=== PATIENT | female | born 1980 | race Caucasian/White ===

== ENCOUNTER → 2018-11-06 10:32 | Outpatient (CLI) | payer OTHER ==
[2018-11-06 11:15] LABS: BASOPHILS 0.3 % (0-2); EOSINOPHILS 1.6 % (0-7); HEMOGLOBIN 13.6 g/dL (12-16); IMMATURE GRANULOCYTES 0.2 % (0-5); LYMPHOCYTES 25.6 % (15-50); MCH 35.5 pg (26.0-34.0); MCHC 34.9 g/dL (31.0-37.0); MCV 101.8 fL (80.0-100.0); MEAN PLATELET VOLUME 9.3 fL (7.4-10.4); MONOCYTES 5.7 % (2-11); NEUTROPHILS 66.6 % (40-80); PLATELET COUNT 260 10x3/uL (130-400); RBC 3.83 10x6/uL (4.00-5.40); WBC 6.1 10x3/uL (4.8-10.8)
[2018-11-06 11:16] LABS: ALBUMIN 3.8 g/dL (3.4-5.0); ALKALINE PHOSPHATASE 52 U/L (46-116); ALT (SGPT) 20 U/L (10-68); BILIRUBIN - TOTAL 0.22 mg/dL (0.2-1.3); CALC OSMOLALITY 275 mosm/kg (275-300); CALCIUM 9.1 mg/dL (8.5-10.1); CARBON DIOXIDE 29.7 mmol/L (21.0-32.0); CHLORIDE - SERUM 101 mmol/L (98-107); CREATININE - SERUM 0.8 mg/dL (0.6-1.3); GLUCOSE 90 mg/dL (74-106); POTASSIUM - SERUM 4.4 mmol/L (3.5-5.1); PROTEIN - SERUM 7.4 g/dL (6.4-8.2); SODIUM 139 mmol/L (136-145); UREA NITROGEN 8 mg/dL (7-18); eGFR NON AFRICAN AMERICAN 84 mL/min (90-120)
[2018-11-06 12:31] LABS: ERYTHROCYTE SEDIMENTATION RATE 19 mm/hr (0-20)
== END | disposition home or self-care (01) ==
LOC: D.LAB 10:32
PROVIDERS: ATTEND Internal Medicine Gastroenterology
DX: K50.90 Crohn's disease, unspecified, without complications (principal); K92.1 Melena; R19.7 Diarrhea, unspecified; R11.2 Nausea with vomiting, unspecified; R10.32 Left lower quadrant pain

== ENCOUNTER → 2019-02-18 08:17 | Outpatient (CLI) | payer OTHER ==
[~2019-02-18 08:17] MED LIST: HYDROCODON-ACE1 EA10 PO; LEVOFLOXACIN500 MG PO; MUCINEX600 MG PO; TAMIFLU30 MG PO; TESSALON PERLE100 MG PO
[2019-03-27 23:09] VITALS: BMI 27.3
== END | disposition home or self-care (01) ==
LOC: D.US 08:17
PROVIDERS: ATTEND Internal Medicine Gastroenterology
DX: R11.2 Nausea with vomiting, unspecified (principal); R10.9 Unspecified abdominal pain

== ENCOUNTER → 2019-03-07 12:05 | Outpatient (CLI) | payer OTHER ==
[2019-03-27 23:09] VITALS: BMI 27.3
== END | disposition home or self-care (01) ==
LOC: D.NM 12:05
PROVIDERS: ATTEND Internal Medicine Gastroenterology
DX: R10.9 Unspecified abdominal pain (principal); R11.2 Nausea with vomiting, unspecified

== ENCOUNTER 2019-03-27 16:50 | Inpatient (IN) | payer OTHER ==
[~2019-03-27] VITALS: Ht 170.2 cm; Wt 79.1 kg
[2019-03-27] MEDS ORDERED: TAMIFLU30 MG PO (17:24)
[2019-03-27] MEDS ORDERED: MUCINEX600 MG PO (17:25)
[2019-03-27] MEDS ORDERED: HYDROCODON-ACE1 EA10 PO (17:26)
[2019-03-27 18:32] LABS: CALC OSMOLALITY 275 mosm/kg (275-300); CALCIUM 8.6 mg/dL (8.5-10.1); CARBON DIOXIDE 31.3 mmol/L (21.0-32.0); CHLORIDE - SERUM 100 mmol/L (98-107); CREATININE - SERUM 0.7 mg/dL (0.6-1.3); GLUCOSE 103 mg/dL (74-106); POTASSIUM - SERUM 4.2 mmol/L (3.5-5.1); SODIUM 139 mmol/L (136-145); UREA NITROGEN 8 mg/dL (7-18); eGFR NON AFRICAN AMERICAN > 90 mL/min (90-120)
[2019-03-27 18:38] LABS: ALBUMIN 3.5 g/dL (3.4-5.0); ALKALINE PHOSPHATASE 91 U/L (46-116); ALT (SGPT) 46 U/L (10-68); CREATINE KINASE 23 UL (21-215); PROTEIN - SERUM 7.7 g/dL (6.4-8.2)
[2019-03-27 18:42] LABS: BASOPHILS 0.3 % (0-2); EOSINOPHILS 0.8 % (0-7); HEMATOCRIT 40.8 % (36.0-48.0); HEMOGLOBIN 13.8 g/dL (12-16); IMMATURE GRANULOCYTES 0.3 % (0-5); LYMPHOCYTES 19.4 % (15-50); MCH 35.4 pg (26.0-34.0); MCHC 33.8 g/dL (31.0-37.0); MCV 104.6 fL (80.0-100.0); MEAN PLATELET VOLUME 9.4 fL (7.4-10.4); MONOCYTES 7.2 % (2-11); PLATELET COUNT 248 10x3/uL (130-400); RDW 11.7 % (11.5-14.5); WBC 9.2 10x3/uL (4.8-10.8)
[2019-03-27 19:28] LABS: INR 1.27 (0.85-1.17); PROTIME 15.3 SECONDS (11.6-15.0)
[2019-03-27 19:46] LABS: APPEARANCE CLOUDY (CLEAR); BILIRUBIN NEGATIVE (NEGATIVE); COLOR YELLOW (YELLOW); GLUCOSE NEGATIVE (NEGATIVE); KETONE NEGATIVE (NEGATIVE); NITRITE NEGATIVE (NEGATIVE); PROTEIN TRACE mg/dL (NEGATIVE)
[2019-03-27 19:50] LABS: TROPONIN-I < 0.017 ng/mL (0.000-0.060)
[2019-03-27 19:50] LABS: RED CELLS - URINE NONE SEEN /hpf (0-5); WHITE CELLS - URINE 0-5 /hpf (NEGATIVE)
[2019-03-27 19:51] LABS: AMORPHOUS SEDIMENT <1+ /lpf (NONE SEEN); BACTERIA MODERATE /hpf (NEGATIVE)
--- NOTE | 2019-03-27 22:01 | NUR ---
AZITHROMYCIN 500MG COMPLETE
[2019-03-27 23:09] VITALS: BP 100/62; Ht 170.2 cm; Wt 79.1 kg
[2019-03-28 00:24] VITALS: BP 134/67
[2019-03-28 04:45] VITALS: BP 121/70
[2019-03-28 05:48] LABS: BASOPHILS 0.2 % (0-2); EOSINOPHILS 0 % (0-7); HEMATOCRIT 36.7 % (36.0-48.0); HEMOGLOBIN 12.3 g/dL (12-16); IMMATURE GRANULOCYTES 0.5 % (0-5); MCH 35.4 pg (26.0-34.0); MCHC 33.5 g/dL (31.0-37.0); MCV 105.8 fL (80.0-100.0); MEAN PLATELET VOLUME 9.5 fL (7.4-10.4); MONOCYTES 1.4 % (2-11); NEUTROPHILS 88.9 % (40-80); PLATELET COUNT 232 10x3/uL (130-400); RBC 3.47 10x6/uL (4.00-5.40); RDW 11.8 % (11.5-14.5)
[2019-03-28 06:03] LABS: WBC 6.3 10x3/uL (4.8-10.8)
[2019-03-28 06:44] LABS: ANION GAP 14.3 mmol/L (8-16); BILIRUBIN - TOTAL 0.26 mg/dL (0.2-1.3); CALCIUM 8.8 mg/dL (8.5-10.1); CARBON DIOXIDE 24.3 mmol/L (21.0-32.0); MAGNESIUM - SERUM 2.1 mg/dL (1.8-2.4); PHOSPHOROUS 2.6 mg/dL (2.5-4.9); POTASSIUM - SERUM 3.6 mmol/L (3.5-5.1); PROTEIN - SERUM 7.2 g/dL (6.4-8.2)
[2019-03-28 06:48] LABS: CREATININE - SERUM 0.9 mg/dL (0.6-1.3)
[2019-03-28 07:50] VITALS: BP 116/65
--- NOTE | 2019-03-28 08:10 | NUR ---
REPORT RECIEVED. WILL CONTINUE WITH POC. PT CURRENTLY LYING SUPINE. CALL LIGHT W/I REACH. PT IS AAO AND UP AD SHARDA. RR EVEN AND UNLABORED ON RA. L.HAND PIV IS SALINE LOCKED. NO S/S OF DISTRESS NOTED. PT DENIES ANY NEEDS. WILL CTM.
[2019-03-28 10:47] VITALS: BP 129/81
--- NOTE | 2019-03-28 11:54 | NUR ---
I have reviewed this patient and I concur with the Shift Assessment completed by the Licensed Practical Nurse today this shift.
--- NOTE | 2019-03-28 14:52 | NUR ---
NOTIFIED CONNIE WITH INFECTION CONTROL TO NOTIFY HER OF THE NEGATIVE FLU RESULTS. RECEIVED ORDERS TO KEEP PT IN ISOLATION OVER THE WEEKEND. WILL CTM.
[2019-03-28 15:14] VITALS: BP 166/103
--- NOTE | 2019-03-28 19:10 | NUR ---
RECEIVED REPORT, WILL ASSUME CARE OF PT, DR. PEARL IN ROOM, WILL CONTINUE PLAN OF PT
[2019-03-28] MEDS ORDERED: MUCINEX600 MG PO (21:00)
[2019-03-28] MEDS ORDERED: TESSALON PERLE100 MG PO (21:00)
--- NOTE | 2019-03-28 21:32 | NUR ---
DISCHARGED HOME WITH FAMILY, TAKEN DOWN VIA WHEELCHAIR
[2019-03-28] MEDS ORDERED: LEVOFLOXACIN500 MG PO (22:24)
--- NOTE | 2019-03-31 09:04 | MORECARE ---
CASE MANAGEMENT DISCHARGE SUMMARY PATIENT: GABRIELA OROPEZA BLUE UNIT: [id number] ADM DATE: 03/27/19 AGE: 38 : 78 SEX: F ROOM/BED: D.2101 AUTHOR: RUEL DERAS PHYSICIAN: REFERRING PHYSICIAN: THERESE PEARL MD DATE OF SERVICE: 03/31/19 Discharge Plan Patient Name: GABRIELA OROPEZA Facility: [facility]:[place] : 1980 Planned Disposition: Home Anticipated Discharge Date: 03/28/19 Discharge Date: 03/28/2019 Expected LOS: 1 Initial Reviewer: [email or web address] Initial Review Date: 03/31/2019 Generated: 03/31/19 10:04 am Patient Name: GABRIELA OROPEZA Page [id number] at 0904 All edits/amendments must be made on the electronic document DICTATION DATE: 03/31/19903 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
--- NOTE | 2019-03-31 09:12 | MORECARE ---
CASE MANAGEMENT DISCHARGE SUMMARY PATIENT: GABRIELA OROPEZA BLUE UNIT: [id number] ADM DATE: 03/27/19 AGE: 38 : 78 SEX: F ROOM/BED: D.2101 AUTHOR: RUEL DERAS PHYSICIAN: REFERRING PHYSICIAN: THERESE PEARL MD DATE OF SERVICE: 03/31/19 Discharge Plan Patient Name: GABRIELA OROPEZA Facility: [facility]:[place] : 1980 Planned Disposition: Home Anticipated Discharge Date: 03/28/19 Discharge Date: 03/28/2019 Expected LOS: 1 Initial Reviewer: [email or web address] Initial Review Date: 03/31/2019 Generated: 03/31/19 10:11 am Patient Name: GABRIELA OROPEZA Page [phone] at 0912 All edits/amendments must be made on the electronic document DICTATION DATE: 03/31/19910 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
== END 2019-03-28 21:33 | disposition home or self-care (01) | DRG 152 ==
LOC: D.ER 16:50 → D.M2 20:10
PROVIDERS: Family Medicine; ADMIT Internal Medicine Nephrology; ATTEND Internal Medicine Nephrology
DX: J11.1 Influenza due to unidentified influenza virus with other respiratory manifestations (principal); J96.01 Acute respiratory failure with hypoxia; F17.213 Nicotine dependence, cigarettes, with withdrawal; N39.0 Urinary tract infection, site not specified; J44.1 Chronic obstructive pulmonary disease with (acute) exacerbation; D75.89 Other specified diseases of blood and blood-forming organs

== ENCOUNTER 2019-11-10 04:07 | Emergency (ER) | payer OTHER ==
[~2019-11-10] VITALS: Ht 170.2 cm; Wt 72.7 kg
[2019-11-10 04:15] VITALS: Ht 170.2 cm; Wt 72.7 kg
[2019-11-10] MEDS ORDERED: OMEPRAZOLE20 M1 PO (04:17)
[2019-11-10] MEDS ORDERED: ULTRAM50 MG PO (04:17)
--- NOTE | 2019-11-10 05:07 | NUR ---
PATIENT IS IN ER FOR ANKLE PAIN. SHE IS NOT SUICIDIAL AND HAS NOT BEEN FOR THREE YEARS. SHE IS VERY HAPPY AND LIVES FOR HER CHILDREN AND GRANDCHILDREN. 1800 NUMBER GIVEN FOR FUTURE REFERENCE.
[2019-11-10] MEDS ORDERED: HYDROCODON-ACE1 EAC7 PO (05:31)
[2019-11-10 06:11] VITALS: BP 108/77
== END 2019-11-10 06:11 | disposition home or self-care (01) ==
LOC: D.ER 04:07
DX: S90.02XA Contusion of left ankle, initial encounter (principal); S80.02XA Contusion of left knee, initial encounter; W19.XXXA Unspecified fall, initial encounter; Y93.9 Activity, unspecified; Y92.9 Unspecified place or not applicable; S93.402A Sprain of unspecified ligament of left ankle, initial encounter

== ENCOUNTER 2019-12-13 12:31 | Inpatient (IN) | payer OTHER ==
[2019-12-13] VITALS (7 sets, daily range): BP systolic 114–130; BP diastolic 62–84
[~2019-12-13] VITALS: Ht 170.2 cm; Wt 69.0 kg
[~2019-12-13 12:31] MED LIST changes: +HYDROCODON-ACE1 EAC7 PO; +OMEPRAZOLE20 M1 PO; +ULTRAM50 MG PO
[2019-12-13 13:26] LABS: BASOPHILS 0.3 % (0-2); EOSINOPHILS 1.9 % (0-7); HEMATOCRIT 39.5 % (36.0-48.0); HEMOGLOBIN 13.8 g/dL (12-16); IMMATURE GRANULOCYTES 0.3 % (0-5); LYMPHOCYTES 28.6 % (15-50); MCH 35.8 pg (26.0-34.0); MCHC 34.9 g/dL (31.0-37.0); MCV 102.6 fL (80.0-100.0); MONOCYTES 7.1 % (2-11); NEUTROPHILS 61.8 % (40-80); PLATELET COUNT 251 10x3/uL (130-400); RBC 3.85 10x6/uL (4.00-5.40); RDW 11.9 % (11.5-14.5); WBC 5.8 10x3/uL (4.8-10.8)
[2019-12-13 13:53] LABS: BILIRUBIN NEGATIVE (NEGATIVE); GLUCOSE NEGATIVE (NEGATIVE); KETONE NEGATIVE (NEGATIVE); NITRITE NEGATIVE (NEGATIVE); UROBILINOGEN NORMAL (NORMAL)
[2019-12-13 13:54] LABS: HCG URINE NEGATIVE (NEGATIVE)
[2019-12-13 14:01] LABS: CALC OSMOLALITY 271 mosm/kg (275-300); CALCIUM 8.7 mg/dL (8.5-10.1); CARBON DIOXIDE 26.2 mmol/L (21.0-32.0); CHLORIDE - SERUM 103 mmol/L (98-107); CREATININE - SERUM 0.9 mg/dL (0.6-1.3); GLUCOSE 106 mg/dL (74-106); POTASSIUM - SERUM 3.7 mmol/L (3.5-5.1); SODIUM 137 mmol/L (136-145); UREA NITROGEN 6 mg/dL (7-18); eGFR NON AFRICAN AMERICAN 73 mL/min (90-120)
--- NOTE | 2019-12-13 14:07 | NUR ---
PT TRANSPORTED TO CT AT THIS TIME VIA STRETCHER
[2019-12-13 14:09] LABS: ALBUMIN 3.8 g/dL (3.4-5.0); ALKALINE PHOSPHATASE 65 U/L (30-120); ALT (SGPT) 24 U/L (10-68); AMYLASE - SERUM 40 U/L (25-115); BILIRUBIN - TOTAL 0.39 mg/dL (0.2-1.3); LIPASE 117 U/L (73-393); PROTEIN - SERUM 7.5 g/dL (6.4-8.2); TROPONIN-I < 0.017 ng/mL (0.000-0.060)
--- NOTE | 2019-12-13 18:20 | NUR ---
CALLED ED AND RECIEVED REPORT FROM MATILDA.
--- NOTE | 2019-12-13 19:00 | NUR ---
1900. PT AWAKE ALERT ASKING TO GO TO BEDSIDE POTTY. PT AMBULATED WITHOUT DIFFICULTY. SMALL STEATORRHEA, WITH SCANT BLOOD NOTED. PT AMBULATED IN BED. ASKED ABOUT VISITING HOURS. STATES HER WILL BRING HER LIQUID SOUP FOR DINNER. OFFERED PT JELLO AND SPRITE. PT ATE WITHOUT DIFFUCULTY. NO C/O VOMMITING OR EMMISIS. 2100- BRINGS PT SOUP. NO OTHER NEEDS AT THIS TIME. BED LOW CALL LIGHT IN REACH. 2300 REASSESSMENT COMPELTED. PT RESTING WITH EYES CLOSED. NO NEEDS AT THIS TIME 0100 RESTING WITH EYES CLOSED. 0300 REASSESSMENT COMPLETED. NO NEEDS VERBALIZED 0500 PT RESTING WITH EYES CLOSED. NO NEEDS AT THIS TIME.
[2019-12-14] VITALS (10 sets, daily range): BP systolic 104–137; BP diastolic 65–86
[2019-12-14 05:32] LABS: BASOPHILS 0.6 % (0-2); EOSINOPHILS 3.3 % (0-7); HEMATOCRIT 34.3 % (36.0-48.0); IMMATURE GRANULOCYTES 0.3 % (0-5); LYMPHOCYTES 52.8 % (15-50); MEAN PLATELET VOLUME 9.3 fL (7.4-10.4); RBC 3.33 10x6/uL (4.00-5.40); RDW 11.7 % (11.5-14.5)
[2019-12-14 05:36] LABS: PLATELET COUNT 155 10x3/uL (130-400); WBC 3.6 10x3/uL (4.8-10.8)
[2019-12-14 05:55] LABS: ALBUMIN 3.2 g/dL (3.4-5.0); ALKALINE PHOSPHATASE 57 U/L (30-120); BILIRUBIN - TOTAL 0.64 mg/dL (0.2-1.3); CARBON DIOXIDE 27.4 mmol/L (21.0-32.0); CHLORIDE - SERUM 107 mmol/L (98-107); CREATININE - SERUM 0.7 mg/dL (0.6-1.3); GLUCOSE 96 mg/dL (74-106); POTASSIUM - SERUM 3.3 mmol/L (3.5-5.1); PROTEIN - SERUM 6.5 g/dL (6.4-8.2); SODIUM 141 mmol/L (136-145); eGFR NON AFRICAN AMERICAN > 90 mL/min (90-120)
[2019-12-14 06:02] LABS: ALT (SGPT) 13 U/L (10-68); CALC OSMOLALITY 277 mosm/kg (275-300); UREA NITROGEN 4 mg/dL (7-18)
--- NOTE | 2019-12-14 17:30 | NUR ---
ARRIVES TO UNIT PER W/C, FAMILY AT BEDSIDE, IV TO R HAND, PROTONIX GTT AT 10 AND NS AT KVO, PAIN 3 NOW, NO BM TODAY, WILL BE NPO AFTER MN FOR NM SCAN TOMORROW, CONT TO MONITOR
--- NOTE | 2019-12-14 17:34 | NUR ---
TRANSFERRED TO ROOM 2232 VIA WHEELCHAIR.
[2019-12-14 19:47] LABS: UDS - AMPHET NEGATIVE QUAL (NEGATIVE); UDS - BARB NEGATIVE QUAL (NEGATIVE); UDS - BENZO NEGATIVE QUAL (NEGATIVE); UDS - COCAINE POSITIVE QUAL (NEGATIVE); UDS - OPIATE POSITIVE QUAL (NEGATIVE); UDS - PCP NEGATIVE QUAL (NEGATIVE); UDS - THC NEGATIVE QUAL (NEGATIVE)
[2019-12-15] VITALS: BP 131/79
[2019-12-15 06:15] LABS: BASOPHILS 0.3 % (0-2); EOSINOPHILS 1.9 % (0-7); HEMATOCRIT 33.3 % (36.0-48.0); HEMOGLOBIN 11.3 g/dL (12-16); IMMATURE GRANULOCYTES 0.3 % (0-5); LYMPHOCYTES 46.5 % (15-50); MCH 35.1 pg (26.0-34.0); MCHC 33.9 g/dL (31.0-37.0); MCV 103.4 fL (80.0-100.0); MEAN PLATELET VOLUME 9.6 fL (7.4-10.4); MONOCYTES 6.1 % (2-11); NEUTROPHILS 44.9 % (40-80); PLATELET COUNT 164 10x3/uL (130-400); RBC 3.22 10x6/uL (4.00-5.40); RDW 11.6 % (11.5-14.5); WBC 3.6 10x3/uL (4.8-10.8)
[2019-12-15 06:41] LABS: CALC OSMOLALITY 266 mosm/kg (275-300); CALCIUM 8.1 mg/dL (8.5-10.1); CARBON DIOXIDE 28.8 mmol/L (21.0-32.0); CHLORIDE - SERUM 104 mmol/L (98-107); CREATININE - SERUM 0.7 mg/dL (0.6-1.3); GLUCOSE 100 mg/dL (74-106); POTASSIUM - SERUM 3.1 mmol/L (3.5-5.1); SODIUM 134 mmol/L (136-145); eGFR NON AFRICAN AMERICAN > 90 mL/min (90-120)
[2019-12-15 06:43] LABS: UREA NITROGEN 10 mg/dL (7-18)
[2019-12-15 08:00] VITALS: BP 121/79
--- NOTE | 2019-12-15 08:47 | NUR ---
AWAKE AND ALERT. ORIENTED X3. C/O ABDOMINAL PAIN THIS AM. NPO FOR TESTS AT THIS TIME. LUNGS ARE CLEAR BILATERALLY, NO COUGH NOTED. SKIN IS INTACT WTIHOUT REDNESS. IV TO RIGHT FOREARM IS PATENT WITHOUT REDNESS AT INSERTION SITE. DENIES NEEDS.
[2019-12-15 12:00] VITALS: BP 141/87
[2019-12-15 14:55] VITALS: Ht 170.2 cm; Wt 69.0 kg
[2019-12-15 16:00] VITALS: BP 136/96
[2019-12-15 20:00] VITALS: BP 148/75
[2019-12-16] VITALS: BP 140/83
[2019-12-16 04:00] VITALS: BP 115/79
[2019-12-16 05:42] LABS: BASOPHILS 0.6 % (0-2); EOSINOPHILS 1.4 % (0-7); HEMOGLOBIN 11.1 g/dL (12-16); IMMATURE GRANULOCYTES 0.3 % (0-5); LYMPHOCYTES 47.2 % (15-50); MCH 34.9 pg (26.0-34.0); MCHC 33.6 g/dL (31.0-37.0); MCV 103.8 fL (80.0-100.0); MEAN PLATELET VOLUME 9.6 fL (7.4-10.4); MONOCYTES 8.1 % (2-11); NEUTROPHILS 42.4 % (40-80); PLATELET COUNT 168 10x3/uL (130-400); RBC 3.18 10x6/uL (4.00-5.40); RDW 11.7 % (11.5-14.5); WBC 3.5 10x3/uL (4.8-10.8)
[2019-12-16 06:11] LABS: % SATURATION 32 % (15-55); IRON 68 ug/dl (35-150); TOTAL IRON BIND CAPACITY 210 ug/dl (260-445); UNSAT IRON BIND CAPACITY 142 ug/dl (150-375)
[2019-12-16 06:36] LABS: CALC OSMOLALITY 281 mosm/kg (275-300); CALCIUM 8.2 mg/dL (8.5-10.1); CARBON DIOXIDE 27.7 mmol/L (21.0-32.0); CHLORIDE - SERUM 107 mmol/L (98-107); CREATININE - SERUM 0.7 mg/dL (0.6-1.3); FERRITIN 211 ng/mL (3-244); GLUCOSE 98 mg/dL (74-106); SODIUM 143 mmol/L (136-145); eGFR NON AFRICAN AMERICAN > 90 mL/min (90-120)
[2019-12-16 06:48] LABS: UREA NITROGEN 5 mg/dL (7-18)
[2019-12-16 08:00] VITALS: BP 123/82
--- NOTE | 2019-12-16 09:00 | NUR ---
ASSESSMENT PER FLOW SHEET. PATIENT IS WITHOUT DISTRESS.NPO FOR PROCEDURE TODAY.CALL LIGHT IN REACH
[2019-12-16 16:00] VITALS: BP 128/67
--- NOTE | 2019-12-16 17:50 | NUR ---
REMAINS WITHOUT NEEDS,WITHOUT CHANGE. HOPES TO DC HOME THIS AFTERNOON. CONT PLAN OF CARE
--- NOTE | 2019-12-16 19:10 | NUR ---
PATIENT ALERT AND ORIENTED. IRRITATED WHEN ENTERING THE ROOM. SHE STATED SHE WAS IN PAIN AND HAD BEEN WITHOUT PAIN MEDICINE FOR QUITE A WHILE. ADMINISTERED PAIN MEDICINE FOR PAIN RATING OF 8/10. PATIENT TOELRATED WELL. PATIENT UPSET STATES THAT SHE WAS SUPPOSED TO GO HOME. REVIEWED DOCTORS NOTES AND TOLD PATIENT THAT WE WILL BE TRYING NEW MEDICATION AND ADVANCING DIET AND WANTED TO OBSERVE PATIENT. PATIENT VERBALIZES UNDERSTANDING. DENIES FURTHER NEEDS. CALL LIGHT REMAINS CLOSE TO PATIENT. ASSESSMENT COMPLETED AND CHARTED. CPOC.
[2019-12-16 20:00] VITALS: BP 120/90
[2019-12-17 04:00] VITALS: BP 138/80
[2019-12-17 06:15] LABS: BASOPHILS 0.2 % (0-2); EOSINOPHILS 1.6 % (0-7); HEMATOCRIT 32.5 % (36.0-48.0); HEMOGLOBIN 10.8 g/dL (12-16); IMMATURE GRANULOCYTES 0.2 % (0-5); LYMPHOCYTES 25.9 % (15-50); MCH 35.1 pg (26.0-34.0); MCHC 33.2 g/dL (31.0-37.0); MCV 105.5 fL (80.0-100.0); MEAN PLATELET VOLUME 9.4 fL (7.4-10.4); NEUTROPHILS 66.1 % (40-80); PLATELET COUNT 167 10x3/uL (130-400); RBC 3.08 10x6/uL (4.00-5.40); RDW 11.8 % (11.5-14.5); WBC 5.8 10x3/uL (4.8-10.8)
[2019-12-17 07:01] LABS: CALCIUM 8.1 mg/dL (8.5-10.1); CARBON DIOXIDE 25.7 mmol/L (21.0-32.0); CHLORIDE - SERUM 102 mmol/L (98-107); CREATININE - SERUM 0.7 mg/dL (0.6-1.3); GLUCOSE 118 mg/dL (74-106); SODIUM 138 mmol/L (136-145); eGFR NON AFRICAN AMERICAN > 90 mL/min (90-120)
[2019-12-17 07:26] LABS: CALC OSMOLALITY 275 mosm/kg (275-300); UREA NITROGEN 9 mg/dL (7-18)
[2019-12-17 07:28] LABS: POTASSIUM - SERUM 2.9 mmol/L (3.5-5.1)
--- NOTE | 2019-12-17 09:00 | NUR ---
ASSESSMENT PER FLOW SHEET. PATIENT IS WITHOUT DISTRESS.CALL LIGHT IN REACH
[2019-12-17 09:51] VITALS: BP 111/69
[2019-12-17] MEDS ORDERED: BENTYL 20 MG TA20 MG PO (13:01)
[2019-12-17 13:32] VITALS: BP 127/76
[2019-12-17] MEDS ORDERED: NICODERM CQ1 EAC3 TOPICAL (13:47)
--- NOTE | 2019-12-17 13:54 | MORECARE ---
CASE MANAGEMENT DISCHARGE SUMMARY PATIENT: GABRIELA OROPEZA BLUE UNIT: [id number] ADM DATE: 12/13/19 AGE: 39 : 76 SEX: F ROOM/BED: D.2232 AUTHOR: RUEL DERAS PHYSICIAN: REFERRING PHYSICIAN: KIMMY VALDIVIA MD DATE OF SERVICE: 12/17/19 Discharge Plan Patient Name: GABRIELA OROPEZA Facility: [facility]:[place] : 1980 Planned Disposition: Home Anticipated Discharge Date: Discharge Date: Expected LOS: Initial Reviewer: [email or web address] Initial Review Date: 12/17/2019 Generated: 12/17/19 2:54 pm DCP- Discharge Planning Updated by [email or web address]: Melani Malhotra on 12/17/19 12:[address] Patient Name: GABRIELA OROPEZA Admission Status: ER Accout number: [id number] Admission Date: 12-13-2019 : 1980 Admission Diagnosis:GASTROINTESTINAL HEMORRHAGE, UNSPECIFIED Attending: BHUMIKA Current LOS: 4 Anticipated DC Date: Planned Disposition: Home Primary Insurance: [facility] Discharge Planning Comments: CM met with patient at bedside after explaining CM role and obtaining verbal consent. CM discussed availability / needs of home health, REHAB and medical equipment. PATIENT DENIES ANY DISCHARGE NEEDS. Rv Mechanic: Melani Malhotra DCPIA - Discharge Planning Initial Assessment Updated by [email or web address]: Melani Malhotra on 12/17/19 1:53 pm * Is the patient Alert and Oriented? Yes * PCP SKIP * Pharmacy [facility] * Preadmission Environment Home with Family * ADLs Independent * Equipment None * Community resources currently utilized None * Additional services required to return to the preadmission environment? No * Can the patient safely return to the preadmission environment? Yes * Has this patient been hospitalized within the prior 30 days at any hospital? No Patient Name: GABRIELA OROPEZA Page [phone] at 1354 All edits/amendments must be made on the electronic document DICTATION DATE: 12/17/19 1353 PARI MUTUEL TICKET CASHIER: MONICA 12/17/19 1354 RPT#: [id number] AK DATE: STATUS: ADM IN [facility] [address] [place] [address] END OF REPORT
--- NOTE | 2019-12-17 14:33 | NUR ---
iv dcd with cath tip intact. discharge instructions,states understanding. left unit via wheelchair for transport home
--- NOTE | 2019-12-19 09:09 | MORECARE ---
CASE MANAGEMENT DISCHARGE SUMMARY PATIENT: GABRIELA OROPEZA BLUE UNIT: [id number] ADM DATE: 12/13/19 AGE: 39 : 76 SEX: F ROOM/BED: D.2232 AUTHOR: RUEL DERAS PHYSICIAN: REFERRING PHYSICIAN: KIMMY VALIDVIA MD DATE OF SERVICE: 12/19/19 Discharge Plan Patient Name: GABRIELA OROPEZA Facility: [facility]:[place] : 1980 Planned Disposition: Home Anticipated Discharge Date: Discharge Date: 12/17/2019 Expected LOS: Initial Reviewer: [email or web address] Initial Review Date: 12/17/2019 Generated: 12/19/19 10:09 am DCP- Discharge Planning Updated by [email or web address]: Melani Malhotra on 12/17/19 12:[address] Patient Name: GABRIELA OROPEZA Admission Status: ER Accout number: [id number] Admission Date: 12-13-2019 : 1980 Admission Diagnosis:GASTROINTESTINAL HEMORRHAGE, UNSPECIFIED Attending: BHUMIKA Current LOS: 4 Anticipated DC Date: Planned Disposition: Home Primary Insurance: [facility] Discharge Planning Comments: CM met with patient at bedside after explaining CM role and obtaining verbal consent. CM discussed availability / needs of home health, REHAB and medical equipment. PATIENT DENIES ANY DISCHARGE NEEDS. Industrial Automation Specialist: Melani Malhotra DCPIA - Discharge Planning Initial Assessment Updated by [email or web address]: Melani Malhotra on 12/17/19 1:53 pm * Is the patient Alert and Oriented? Yes * PCP SKIP * Pharmacy [facility] * Preadmission Environment Home with Family * ADLs Independent * Equipment None * Community resources currently utilized None * Additional services required to return to the preadmission environment? No * Can the patient safely return to the preadmission environment? Yes * Has this patient been hospitalized within the prior 30 days at any hospital? 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
== END 2019-12-17 14:34 | disposition home or self-care (01) | DRG 379 ==
LOC: D.ER 12:31 → D.MS 13:29 → D.CVICU 13:29 → D.MS 12-14 17:37
PROVIDERS: Family Medicine; Internal Medicine Gastroenterology; Legal Medicine; ADMIT Emergency Medicine; ATTEND Emergency Medicine
PROC: 0DBB8ZX Excision of Ileum, Via Natural or Artificial Opening Endoscopic, Diagnostic (ICD-10-PCS; 2019-12-16)
PROC: 0DBN8ZZ Excision of Sigmoid Colon, Via Natural or Artificial Opening Endoscopic (ICD-10-PCS; principal; 2019-12-16 11:48)
DX: K92.2 Gastrointestinal hemorrhage, unspecified (principal); R10.9 Unspecified abdominal pain; G89.29 Other chronic pain; D53.9 Nutritional anemia, unspecified; E87.6 Hypokalemia; K57.90 Diverticulosis of intestine, part unspecified, without perforation or abscess without bleeding; K64.0 First degree hemorrhoids; K63.5 Polyp of colon